=== PATIENT | female | born 1955 | race Caucasian/White ===

== ENCOUNTER 2019-03-03 14:20 | Inpatient (IN) | payer OTHER ==
[~2019-03-03] VITALS: Ht 172.7 cm; Wt 184.5 kg
--- NOTE | 2019-03-03 14:37 | NUR ---
BIB EMS FOR SOB, PER EMS, EXERTIONAL DYSPNEA W FEW STEPS. PT STATES SOB FOR OVER A WEEK. PT HAS NOT BEEN TAKING LASIX AND POTASSIUM PRESCRIBED BECAUSE SHE DOES NOT LIKE SWALLOWING PILLS, HX OF CHF, STENTS. DENIES CHEST PAIN, N/V/D, PT WAS GIVEN NITRO PASTE AND LASIX IN ROUTE. WAS SENT FROM [facility]. 2 L O2 APPLIED. SAT 94%. PT IS SOB AT THIS TIME, BUT NOT IN ANY DISTRESS. [employer] INSPECTOR AND ADJUSTER APPLIED. VS STABLE.
[2019-03-03] MEDS ORDERED: SODIUM CHLORIDE FLUSH 10ML SYR IVF ONE (15:00)
[2019-03-03] MEDS ORDERED: PLEASE ENTER ALLERGIES MC SCH (15:00)
[2019-03-03] MEDS ORDERED: NITROGLYCERIN OINT 2%, 1GM TP ONE (15:00)
[2019-03-03] MEDS ORDERED: ASPIRIN 81 MG TABLET CHEW PO ONE (15:00)
[2019-03-03] MEDS ORDERED: ISOS20TA3 PO (15:02)
[2019-03-03] MEDS ORDERED: ROSU5TAB PO (15:02)
[2019-03-03] MEDS ORDERED: MELO7.5T31 PO (15:02)
[2019-03-03] MEDS ORDERED: AMLO10TA8 PO (15:02)
[2019-03-03] MEDS ORDERED: MONT10TA6 PO (15:02)
[2019-03-03] MEDS ORDERED: INSU100I13 SQ (15:02)
[2019-03-03] MEDS ORDERED: PRAS10TA4 PO (15:02)
[2019-03-03] MEDS ORDERED: IRBE300T16 PO (15:02)
[2019-03-03] MEDS ORDERED: METO50TA6 PO (15:02)
[2019-03-03] MEDS ORDERED: DULA0.75 SQ (15:02)
[2019-03-03 15:15] LABS: BASOPHILS # (AUTO) 0.04 x10^3/uL (0-0.1); BASOPHILS % (AUTO) 0 % (0-1); EOSINOPHILS # (AUTO) 0.15 x10^3/uL (0-0.4); EOSINOPHILS % (AUTO) 2 % (1-7); LYMPHOCYTES # (AUTO) 1.44 x10^3/uL (1-3.4); LYMPHOCYTES % (AUTO) 14 % (22-44); MD NO; MEAN CORPUSCULAR HEMOGLOBIN 32.7 pg (27.0-34.8); MEAN CORPUSCULAR HGB CONC 33.2 g/dL (32.4-35.8); MEAN CORPUSCULAR VOLUME 98.5 fL (80-100); MEAN PLATELET VOLUME 9.3 fL (7.4-10.4); MONOCYTES # (AUTO) 0.44 x10^3/uL (0.2-0.8); MONOCYTES % (AUTO) 4 % (2-9); NEUTROPHILS # (AUTO) 8.01 x10^3/uL (1.8-6.8); NEUTROPHILS % (AUTO) 79 % (42-75); PLATELET COUNT 273 x10^3/uL (130-400); RED BLOOD COUNT 3.89 x10^6/uL (3.82-5.3); RED CELL DISTRIBUTION WIDTH 13.6 % (9.6-15.2)
[2019-03-03 15:18] LABS: ALBUMIN 3.4 g/dL (3.4-5.0); ANION GAP 5 mmol/L (5-15); CALCIUM 8.8 mg/dL (8.5-10.1); CHLORIDE 107 mmol/L (98-107); CREATININE 0.85 mg/dL (0.55-1.02)
[2019-03-03] MEDS ORDERED: ASPIRIN 81 MG TABLET CHEW ONE (15:22)
[2019-03-03 15:26] LABS: TROPONIN I 0.323 ng/mL (0.000-0.045)
--- NOTE | 2019-03-03 15:30 | NUR ---
PT WHEELED TO BATHROOM PT. AMBULATED W STEADY GATE TO BATHROOM. PT DENIES CHEST PAIN. SOB PRESENT
--- NOTE | 2019-03-03 16:36 | NUR ---
MD AT BEDSIDE DISCUSSING POC
[2019-03-03] MEDS ORDERED: HEPARIN 5,000 UNITS/ML, 1ML ONE (17:48)
[2019-03-03] MEDS ORDERED: HEPARIN 25,000 UNITS/500ML PMX 500 ML ONE (17:48)
--- NOTE | 2019-03-03 17:55 | NUR ---
THROUGHPUT RN: PT W/ [employer] INSURANCE. CALLED SAW AT [facility] WHO STATES PT CAN STAY AT [facility]. SPOKE W/ DAYSI FROM [facility] WHO DECLINED TRANSFER. PSN SHEET FAXED TO [phone]. CONFIRMATION RECEIVED.
[2019-03-03] MEDS: HEPARIN 25,000 UNITS/500ML PMX 500 ML IV PRN (17:56)
[2019-03-03] MEDS ORDERED: morphine SULFATE 10 MG/ML, 1ML IVPush PRN (18:00)
[2019-03-03] MEDS: INSULIN LISPRO 100 UNITS/ML, PEN SQ-INSULIN SCH (18:00)
[2019-03-03] MEDS ORDERED: NITROGLYCERIN 0.4 MG BOTTLE (25 TABS) SL PRN (18:00)
[2019-03-03] MEDS ORDERED: POLYETHYLENE GLYCOL 17 GM PACKET PO PRN (18:00)
[2019-03-03] MEDS ORDERED: ACETAMINOPHEN 325 MG TABLET PO PRN (18:00)
[2019-03-03] MEDS ORDERED: BISACODYL 10 MG SUPP PR PRN (18:00)
[2019-03-03] MEDS ORDERED: HEPARIN 5,000 UNITS/ML, 1ML IV PRN (18:00)
[2019-03-03] MEDS ORDERED: ONDANSETRON ODT 4 MG PO PRN (18:00)
[2019-03-03] MEDS ORDERED: HEPARIN 5,000 UNITS/ML, 1ML IV ONE (18:00)
[2019-03-03] MEDS ORDERED: DULAGLUTIDE SQ SCH ×2 (18:00→23:54)
--- NOTE | 2019-03-03 18:00 | NUR ---
HEPARIN DRIP STARTED AT 1800. NATE EPPS TO VERIFY ADMINISTRATION
--- NOTE | 2019-03-03 19:16 | NUR ---
GIVEN SANDWHICH AND WATER.
--- NOTE | 2019-03-03 19:30 | NUR ---
REPORT TO GISELL. PT READY FOR TRANSFER
[2019-03-03] MEDS ORDERED: TEMPLATE NON-FORMULARY MED. (Rosuvastatin Calcium** (Crestor**) 5 MG) PO SCH (21:00)
--- NOTE | 2019-03-03 21:25 | NUR ---
PT WITH NON CONTRACTED INSURANCE OF [employer]. CALLED [facility] WHO INITIALLY ACEPTED PT WITH DR. OBANDO, THEN DUE TO PT BEING A LATERAL TRANSFER, STATD THEY WILL NOT TAKE PT. CALLED [facility] WHO STATED THEY ARE CONTRACTED WITH [employer], STATED THEY WILL TAKE PT, WITH ACCEPTING DOC ISIAH. KRISTIAN ALBA IS GIVEN PROVIDER TO PROVIDER REPORT AT THIS TIME. KRISTIAN TO CALL ER TO INFORM IF THIS DOC IS GOING TO FOR SURE ACCEPT PT.
--- NOTE | 2019-03-03 21:41 | NUR ---
repeat ekg complete. denies any cp. aware of plan to transfer to [facility]. admitting at .
--- NOTE | 2019-03-03 21:42 | NUR ---
DR CAMPBELL AWARE OF ELEVATED TROP OF 1.13
[2019-03-03 23:45] VITALS: BP 182/99
[2019-03-04] VITALS (7 sets, daily range): BP systolic 104–182; BP diastolic 54–99
[2019-03-04] MEDS: HEPARIN 25,000 UNITS/500ML PMX 500 ML IV PRN (00:14)
[2019-03-04] MEDS: ATORVASTATIN 20 MG TABLET PO SCH ×2 (00:15→21:04)
[2019-03-04] MEDS: METOPROLOL TARTRATE 50 MG TABLET PO SCH ×3 (00:20→21:04)
[2019-03-04] MEDS: SODIUM CHLORIDE FLUSH 10ML SYR IVF SCH ×3 (00:21→21:04)
[2019-03-04] MEDS: INSULIN LISPRO 100 UNITS/ML, PEN SQ-INSULIN SCH ×5 (00:25→21:09)
[2019-03-04] MEDS: HEPARIN 5,000 UNITS/ML, 1ML IV PRN ×2 (01:00→09:28)
[2019-03-04 04:45] LABS: BASOPHILS # (AUTO) 0.02 x10^3/uL (0-0.1); BASOPHILS % (AUTO) 0 % (0-1); EOSINOPHILS # (AUTO) 0.18 x10^3/uL (0-0.4); EOSINOPHILS % (AUTO) 2 % (1-7); LYMPHOCYTES # (AUTO) 1.99 x10^3/uL (1-3.4); LYMPHOCYTES % (AUTO) 26 % (22-44); MD NO; MEAN CORPUSCULAR HEMOGLOBIN 32.6 pg (27.0-34.8); MEAN CORPUSCULAR HGB CONC 32.6 g/dL (32.4-35.8); MEAN CORPUSCULAR VOLUME 99.9 fL (80-100); MEAN PLATELET VOLUME 9.4 fL (7.4-10.4); MONOCYTES # (AUTO) 0.48 x10^3/uL (0.2-0.8); MONOCYTES % (AUTO) 6 % (2-9); NEUTROPHILS # (AUTO) 4.99 x10^3/uL (1.8-6.8); NEUTROPHILS % (AUTO) 65 % (42-75); PLATELET COUNT 223 x10^3/uL (130-400); RED BLOOD COUNT 3.59 x10^6/uL (3.82-5.3); RED CELL DISTRIBUTION WIDTH 14.1 % (9.6-15.2)
[2019-03-04 04:47] LABS: ALBUMIN 3.1 g/dL (3.4-5.0); ANION GAP 6 mmol/L (5-15); CALCIUM 8.4 mg/dL (8.5-10.1); CHLORIDE 108 mmol/L (98-107)
[2019-03-04 04:53] LABS: ALANINE AMINOTRANSFERASE 28 U/L (12-78); ALKALINE PHOSPHATASE 73 U/L (45-117); BILIRUBIN,TOTAL 0.3 mg/dL (0.2-1.0); CHOL/HDL RATIO 4.1; CHOLESTEROL, TOTAL 176 mg/dL (140-239); CREATININE 0.87 mg/dL (0.55-1.02); HDL CHOL % 24 % (28-40); HDL CHOLESTEROL (DIRECT) 43 mg/dL (40-60); LDL CHOLESTEROL,CALCULATED 118 mg/dL (54-169); LDL/HDL RATIO 2.7 (0.5-3.0); TOTAL PROTEIN 6.6 g/dL (6.4-8.2); TRIGLYCERIDES 76 mg/dL (50-200); TROPONIN I 0.689 ng/mL (0.000-0.045); VLDL CHOLESTEROL 15 mg/dL (0-25)
[2019-03-04] MEDS: SENNA/DOCUSATE TABLET PO SCH (08:48)
[2019-03-04] MEDS: ISOSORBIDE MONONITRATE 20 MG TABLET PO SCH (09:12)
[2019-03-04] MEDS: AMLODIPINE 10 MG TAB PO SCH (09:12)
[2019-03-04] MEDS: MONTELUKAST 10 MG TABLET PO SCH (09:12)
[2019-03-04 10:16] LABS: TROPONIN I 0.543 ng/mL (0.000-0.045)
[2019-03-04] MEDS ORDERED: SODIUM CHLORIDE 0.9% 1,000 ML IV SCH (11:15)
[2019-03-04] MEDS: DOXAZOSIN 2MG TABLET PO SCH ×2 (12:31→21:04)
[2019-03-04] MEDS ORDERED: FENTANYL PF 100 MCG/2ML ONE (13:36)
[2019-03-04] MEDS ORDERED: TICAGRELOR 90 MG TABLET ONE (13:36)
[2019-03-04] MEDS ORDERED: VERAPAMIL 2.5 MG/ML, 2ML ONE (13:36)
[2019-03-04] MEDS ORDERED: MIDAZOLAM 1 MG/ML, 5ML ONE (13:36)
[2019-03-04] MEDS ORDERED: BIVALIRUDIN 250 MG ONE (13:37)
[2019-03-04] MEDS ORDERED: HEPARIN 1,000 UNITS/ML, 10ML ONE (13:37)
[2019-03-04] MEDS ORDERED: LIDOCAINE 2%, 20ML ONE (13:37)
[2019-03-04] MEDS: SODIUM CHLORIDE 0.9% 1,000 ML IV SCH ×2 (14:49→22:18)
[2019-03-04] MEDS: IRBESARTAN 300 MG TABLET PO SCH (16:00)
[2019-03-04] MEDS ORDERED: POTASSIUM CHLORIDE 20 MEQ in SODIUM CHLORIDE 0.9% 250 ML IV ONE (17:00)
[2019-03-04] MEDS: ASCORBIC ACID 500 MG TABLET PO SCH (17:17)
[2019-03-04] MEDS: PRASUGREL 10 MG TABLET PO SCH (17:17)
[2019-03-04] MEDS ORDERED: POTASSIUM CHLORIDE 20 MEQ TAB.ER.PRT PO ONE (22:00)
[2019-03-05 00:04] VITALS: BP 141/68
[2019-03-05 05:53] LABS: BASOPHILS # (AUTO) 0.01 x10^3/uL (0-0.1); BASOPHILS % (AUTO) 0 % (0-1); EOSINOPHILS % (AUTO) 1 % (1-7); LYMPHOCYTES # (AUTO) 1.23 x10^3/uL (1-3.4); LYMPHOCYTES % (AUTO) 16 % (22-44); MD NO; MEAN CORPUSCULAR HEMOGLOBIN 32.4 pg (27.0-34.8); MEAN CORPUSCULAR HGB CONC 32.1 g/dL (32.4-35.8); MEAN CORPUSCULAR VOLUME 100.9 fL (80-100); MEAN PLATELET VOLUME 9.5 fL (7.4-10.4); MONOCYTES # (AUTO) 0.65 x10^3/uL (0.2-0.8); MONOCYTES % (AUTO) 9 % (2-9); NEUTROPHILS # (AUTO) 5.63 x10^3/uL (1.8-6.8); NEUTROPHILS % (AUTO) 74 % (42-75); PLATELET COUNT 227 x10^3/uL (130-400); RED BLOOD COUNT 3.58 x10^6/uL (3.82-5.3)
[2019-03-05 06:06] LABS: CHLORIDE 108 mmol/L (98-107)
[2019-03-05 06:12] LABS: ALBUMIN 2.9 g/dL (3.4-5.0); ANION GAP 5 mmol/L (5-15); CALCIUM 8.3 mg/dL (8.5-10.1); CREATININE 0.93 mg/dL (0.55-1.02)
[2019-03-05] MEDS: SODIUM CHLORIDE 0.9% 1,000 ML IV SCH ×2 (06:14→11:14)
[2019-03-05] MEDS: INSULIN LISPRO 100 UNITS/ML, PEN SQ-INSULIN SCH ×2 (07:00→11:34)
[2019-03-05 07:15] VITALS: BP 126/64
[2019-03-05] MEDS ORDERED: FUROSEMIDE 20 MG TABLET PO SCH (09:00)
[2019-03-05] MEDS: SENNA/DOCUSATE TABLET PO SCH (09:00)
[2019-03-05] MEDS ORDERED: MULTIVITS,STRESS FORMULA 1 TABLET PO SCH (09:00)
[2019-03-05] MEDS ORDERED: ASPIRIN 81 MG TABLET EC PO SCH (09:00)
[2019-03-05] MEDS: ISOSORBIDE MONONITRATE 20 MG TABLET PO SCH (09:12)
[2019-03-05] MEDS: DOXAZOSIN 2MG TABLET PO SCH (09:13)
[2019-03-05] MEDS: METOPROLOL TARTRATE 50 MG TABLET PO SCH (09:13)
[2019-03-05] MEDS: AMLODIPINE 10 MG TAB PO SCH (09:13)
[2019-03-05] MEDS: MONTELUKAST 10 MG TABLET PO SCH (09:13)
[2019-03-05] MEDS: PRASUGREL 10 MG TABLET PO SCH (09:13)
[2019-03-05] MEDS: SODIUM CHLORIDE FLUSH 10ML SYR IVF SCH (09:14)
[2019-03-05] MEDS ORDERED: POTASSIUM CHLORIDE 10 MEQ TABLET.ER PO SCH (09:30)
[2019-03-05] MEDS: IRBESARTAN 300 MG TABLET PO SCH (11:13)
[2019-03-05] MEDS: ASCORBIC ACID 500 MG TABLET PO SCH (11:13)
[2019-03-05 13:05] VITALS: BP 109/56
[2019-03-05] MEDS ORDERED: CHOLECALCIFEROL 400 UNITS TABLET PO SCH (16:30)
== END 2019-03-05 16:05 | disposition home or self-care (01) | DRG 286 ==
LOC: ED 16:36 → EDIP 16:37 → ED 17:49 → 5SO 23:37
PROVIDERS: ADMIT Internal Medicine; ATTEND Family Medicine
PROC: 4A023N7 Measurement of Cardiac Sampling and Pressure, Left Heart, Percutaneous Approach (ICD-10-PCS; principal; 2019-03-04)
PROC: B211YZZ Fluoroscopy of Multiple Coronary Arteries using Other Contrast (ICD-10-PCS; 2019-03-04)
PROC: B215YZZ Fluoroscopy of Left Heart using Other Contrast (ICD-10-PCS; 2019-03-04)
DX: I25.110 Atherosclerotic heart disease of native coronary artery with unstable angina pectoris (principal); I50.33 Acute on chronic diastolic (congestive) heart failure; Z68.43 Body mass index [BMI] 50.0-59.9, adult; E66.01 Morbid (severe) obesity due to excess calories; E78.5 Hyperlipidemia, unspecified; I11.0 Hypertensive heart disease with heart failure; E11.9 Type 2 diabetes mellitus without complications; Z96.641 Presence of right artificial hip joint; F17.200 Nicotine dependence, unspecified, uncomplicated; G47.33 Obstructive sleep apnea (adult) (pediatric); Z91.14 Patient's other noncompliance with medication regimen; Z72.89 Other problems related to lifestyle; Z79.4 Long term (current) use of insulin; Z79.82 Long term (current) use of aspirin; Z95.5 Presence of coronary angioplasty implant and graft; Z79.899 Other long term (current) drug therapy
CPT/HCPCS: 36415; 71045; 80048; 80053; 80061; 80069; 82040; 82962; 83036; 83735; 83880; 84484; 85025; 85520; 93005; 93306; 93458; 99156; 99157; C1769; C1894; G0378; J0583; J1644; J2250; J3010; J3480; J1815; J7050; Q9967